=== PATIENT | male | born 1985 | race Caucasian/White ===

== ENCOUNTER 2017-12-18 01:59 | Emergency (ER) | payer OTHER ==
[2017-12-18 02:15] VITALS: BP 134/86; PULSE 86; RESP 16; TEMP 97.9; O2SAT 95
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
== END 2017-12-18 02:31 | disposition home or self-care (01) ==
DX: S63.92XA Sprain of unspecified part of left wrist and hand, initial encounter (principal); W22.8XXA Striking against or struck by other objects, initial encounter; Y99.1 Military activity; Y93.89 Activity, other specified

== ENCOUNTER 2018-03-19 01:19 | Emergency (ER) | payer OTHER ==
[2018-03-19 01:29] VITALS: BP 124/77
[2018-03-19] MEDS ORDERED: PROPARACAINE/FLUORESCEIN SOD 5 ML OPHT.BTL ONE (01:35)
[2018-03-19] MEDS ORDERED: IBUPROFEN 800 MG TAB PO ONE (02:07)
[2018-03-19] MEDS ORDERED: OFLOXACIN 0.3% SOLN PREPACK OPHT.BTL TAKEHOME ONE (02:07)
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
== END 2018-03-19 02:22 | disposition home or self-care (01) ==
DX: H57.8 Other specified disorders of eye and adnexa (principal)

== ENCOUNTER 2019-04-20 02:07 | Emergency (ER) | payer OTHER | END 2019-04-20 03:40 | disposition home or self-care (01) ==